=== PATIENT | female | born 1980 | race Caucasian/White ===

== ENCOUNTER 2016-12-09 09:26 | Emergency (ER) | payer OTHER ==
[2016-12-09] MEDS ORDERED: Sodium Chloride 0.9% 1,000 ML IV ONE (10:19)
--- NOTE | 2016-12-09 10:23 | C.PDOC ---
History Of Present Illness 36 y/o female PMHx PE on Xeralto presents to the ED with complains of dizziness and lightheadedness x3 days. Pt denies fever, pain, SOB, cough, headache or any other complaints. Pt states is compliant with medications. Time Seen by Provider: 12/09/16 10:15 Chief Complaint (Nursing): Dizziness/Lightheaded History Per: Patient History/Exam Limitations: no limitations Onset/Duration Of Symptoms: Days Current Symptoms Are (Timing): Still Present Fall Associated With With Symptoms: No Severity: Mild Recent travel outside of the [place]: No - Symptoms Of CVA Recent Head Trauma: No Past Medical History Reviewed: Historical Data, Nursing Documentation, Vital Signs Vital Signs: Last Vital Signs Temp 97.9 F 12/09/16 09:31 Pulse 78 12/09/16 09:31 Resp 16 12/09/16 09:31 BP 121/84 12/09/16 09:31 Pulse Ox 97 12/09/16 10:24 - Medical History PMH: Asthma, Migraine - [facility] Procedures INTRODUCE OTH THROMBOLYTIC IN CENTRAL ART, PERC (02/28/16) ULTRASOUND THERAPY OF OTHER VESSELS, MULTIPLE (02/28/16) Family History: States: Unknown Family Hx - Social History Hx Tobacco Use: No Hx Alcohol Use: No Hx Substance Use: No - Immunization History Hx Tetanus Toxoid Vaccination: No Hx Influenza Vaccination: No Hx Pneumococcal Vaccination: No Review Of Systems Except As Marked, All Systems Reviewed And Found Negative. Constitutional: Negative for: Fever Respiratory: Negative for: Cough, Shortness of Breath Neurological: Positive for: Dizziness. Negative for: Headache Physical Exam - Physical Exam Appears: Non-toxic, No Acute Distress Skin: Warm, Dry, No Rash Head: Atraumatic, Normacephalic Ear(s): Bilateral: Normal Neck: Normal, Normal ROM, Supple Chest: Symmetrical Cardiovascular: Rhythm Regular, No Murmur Respiratory: Normal Breath Sounds, No Rales, No Rhonchi, No Wheezing Gastrointestinal/Abdominal: Soft Extremity: No Pedal Edema Extremity: Bilateral: Atraumatic Neurological/Psych: Oriented x3, Normal Speech, Normal Cognition ED Course And Treatment - Laboratory Results Result Diagrams: 12/09/16 10:52 12/09/16 10:52 O2 Sat by Pulse Oximetry: 97 (on room air) Pulse Ox Interpretation: Normal Medical Decision Making Medical Decision Making: r/o infectious, metabolic vs viral syndrome - labs pending Plan: labs, UA, IV fluids 1133: pt reasesed. texting on phone in nad. states feels well to go home. vitals stable. labs unremarkable. encouraged outpt f/u and return precautions Disposition - Disposition Referrals: [facility] [Outside] [facility] [Outside] Disposition: HOME/ ROUTINE Disposition Time: 11:34 Condition: STABLE Additional Instructions: please follow up with your doctor/clinic return to er with worsening symptoms or concenrs Instructions: Dizziness (ED), Viral Syndrome (ED) - Clinical Impression Clinical Impression: Dizziness - Scribe Statement The provider has reviewed the documentation as recorded by the Haja Mustafa Provider Attestation: All medical record entries made by the Haja were at my direction and personally dictated by me. I have reviewed the chart and agree that the record accurately reflects my personal performance of the history, physical exam, medical decision making, and the department course for this patient. I have also personally directed, reviewed, and agree with the discharge instructions and disposition.
[2016-12-09] MEDS ORDERED: Sodium Chloride 0.9% 1,000 ML ONE (10:39)
[2016-12-09 10:55] LABS: BASO % 0.3 % (0.0-2.0); EOS # 0.1 K/uL (0.0-0.7); EOS % 0.6 % (0.0-4.0); HEMATOCRIT 38.8 % (34.0-47.0); LYMPH # 2.1 K/uL (1.0-4.3); LYMPH % 20.8 % (20.0-40.0); MEAN CELL VOLUME 86.6 fL (81.0-99.0); MEAN CORPUSCULAR HEMOGLOBIN 28.8 pg (27.0-31.0); MEAN CORPUSCULAR HGB CONC 33.3 g/dL (33.0-37.0); MEAN PLATELET VOLUME 8.1 fL (7.2-11.7); MONO # 0.4 K/uL (0.0-0.8); MONO % 4.1 % (0.0-10.0); RED CELL DISTRIBUTION WIDTH 13.3 % (11.5-14.5); WHITE BLOOD COUNT 9.9 K/uL (4.8-10.8)
[2016-12-09 11:04] LABS: CHLORIDE 104 mmol/L (98-107); POTASSIUM 4.7 mmol/L (3.6-5.2); SODIUM 141 mmol/L (132-148)
[2016-12-09 11:06] LABS: BILIRUBIN,TOTAL 0.8 mg/dL (0.2-1.3); GFR AFRICAN-AMERICAN > 60
[2016-12-09 11:07] LABS: ALB/GLOB RATIO 1.1 (1.0-2.1); ALKALINE PHOSPHATASE 64 U/L (38-126); ALT/SGPT 23 U/L (9-52); AST/SGOT 26 U/L (14-36); BLOOD UREA NITROGEN 14 mg/dL (7-17); CARBON DIOXIDE 22 mmol/L (22-30); GLUCOSE,RANDOM 98 mg/dL (65-105); TOTAL PROTEIN 7.7 g/dL (6.3-8.3)
[2016-12-09 11:08] LABS: CALCIUM 8.4 mg/dl (8.6-10.4)
[2016-12-09 11:24] LABS: URINE BILIRUBIN NEGATIVE (NEGATIVE); URINE GLUCOSE (UA) Normal (Normal); URINE KETONE NEGATIVE (NEGATIVE)
[2016-12-09 11:25] LABS: PH,URINE 6.5 (5.0-8.0); URINE BLOOD TRACE-INTACT (NEGATIVE); URINE LEUKOCYTE ESTERASE NEGATIVE Leu/uL (Negative); URINE PROTEIN NEGATIVE (NEGATIVE); URINE UROBILINOGEN 0.2 mg/dL (0.2-1.0)
[2016-12-09 11:26] LABS: RBC URINE 1 /hpf (0-3); URINE COLOR YELLOW (YELLOW)
[2016-12-09 11:27] LABS: WBC URINE 1 /hpf (0-5)
[2016-12-09 11:46] VITALS: BP 117/69; PULSE 65; RESP 18; TEMP 98
[2016-12-09 11:47] VITALS: O2SAT 97
== END 2016-12-09 11:46 | disposition home or self-care (01) ==
LOC: C.ER 09:26
DX: R42 Dizziness and giddiness (principal)

== ENCOUNTER 2017-03-06 18:47 | Emergency (ER) | payer OTHER ==
[2017-03-06 18:55] VITALS: BP 120/88; PULSE 77; RESP 20; TEMP 98.9; O2SAT 99
--- NOTE | 2017-03-06 19:06 | C.PDOC ---
History Of Present Illness 36 yo female come in for evaluation of Right 5th finger pain and mild deformity noted over 5th DIPJ since yesterday. Pt sts, sustained injury 5 days ago " my finger got caught in something and since yesterday noted some deformity". Otherwise, pt denies skin changes, sensory or vascular deficits to Right hand. Ambulate to ED for evaluation, not in any apparent distress. Time Seen by Provider: 03/06/17 18:57 Chief Complaint (Nursing): Finger,Hand,&Wrist History Per: Patient Onset/Duration Of Symptoms: Gradual Past Medical History Reviewed: Historical Data, Nursing Documentation, Vital Signs Vital Signs: Last Vital Signs Temp 98.9 F 03/06/17 18:54 Pulse 77 03/06/17 18:54 Resp 20 03/06/17 18:54 BP 120/88 03/06/17 18:54 Pulse Ox 99 03/06/17 19:07 - Medical History PMH: Asthma, Migraine Surgical History: No Surg Hx - [facility] Procedures INTRODUCE OTH THROMBOLYTIC IN CENTRAL ART, PERC (02/28/16) ULTRASOUND THERAPY OF OTHER VESSELS, MULTIPLE (02/28/16) Family History: States: No Known Family Hx - Social History Hx Tobacco Use: No Hx Alcohol Use: No Hx Substance Use: No - Immunization History Hx Tetanus Toxoid Vaccination: No Hx Influenza Vaccination: No Hx Pneumococcal Vaccination: No Review Of Systems Except As Marked, All Systems Reviewed And Found Negative. Constitutional: Negative for: Fever, Chills Musculoskeletal: Positive for: Hand Pain (Right 5th finger pain) Skin: Negative for: Rash Neurological: Negative for: Weakness, Numbness Physical Exam - Physical Exam Appears: Well, Non-toxic, No Acute Distress Skin: Normal Color, Warm, No Ecchymosis Extremity: Tenderness (mild tenderness over Right 5th DIPJ and distal phalanx with flexion deformity at DIPJ. Unable to extend 5th DIPJ. NO obvious deformity , no skin changes.), Capillary Refill (less than 2sec to Right 5th finger), No Deformity, Other (Remainder of Right hand is intact with FAROM, no neurovascular deficits distally to injury.) Neurological/Psych: Oriented x3, Normal Speech, Normal Motor, Normal Sensation, Normal Reflexes ED Course And Treatment O2 Sat by Pulse Oximetry: 99 - Other Rad Right 5th finger X-Ray: Interpreted by Me, Viewed By Me Interpretation: no acute fx or dislocation Progress Note: ON re-eavl, pt is afebrile, hemdynamicaly stable. NOn-toxic. Right hand: exam c/w rupture of Right 5th DIPJ extensor. NO skin changes. No neurovascular deficits. xray review (-) acute fx. Aluminium finger SPlint applied to Right 5th finger. Pt advise don course of ds. ref. to f/u with hand specialsit in 2-3 days for re-eval. return if any new changes. Disposition Counseled Patient/Family Regarding: Studies Performed, Diagnosis, Need For Followup - Disposition Referrals: Clinic,Med Surg [Primary Care Provider] - Paul Erickson MD [Staff Provider] - Leida Melchor MD [Staff Provider] - Disposition: HOME/ ROUTINE Disposition Time: 19:25 Condition: STABLE Additional Instructions: SPlint Follow up with Hand specialist in 2-3 days for re-evaluation. Return to ED if any worsening or new changes. Instructions: Jammed Finger (ED) - Clinical Impression Clinical Impression: Mallet deformity of left little finger
--- NOTE | 2017-03-07 07:21 | RAD ---
Right hand 5th digit three views History: Injury. Findings: Soft tissue swelling at the level of the right 5th digit. No evidence for acute displaced fracture or dislocation. Negative ulnar variance. Impression: Negative acute. If pain persists, consider MRI.
== END 2017-03-06 19:40 | disposition home or self-care (01) ==
LOC: SUPCPDRO 18:47 → C.ER 18:47
DX: M20.011 Mallet finger of right finger(s) (principal)

== ENCOUNTER 2018-10-20 09:04 | Day surgery (SDC) | payer OTHER ==
[2018-10-20] MEDS ORDERED: Belladonna-Phenobarbital PO STA (11:49)
[2018-10-20] MEDS ORDERED: Pantoprazole 40 mg EC Tab PO STA (11:49)
--- NOTE | 2018-10-20 11:49 | CP.SDSHP ---
Same Day Surgery H & P - History Proposed Procedure: EGD Pre-Op Diagnosis: SEE NOTES - Previous Medical/Surgical History Misc: Other Pain: 4.Moderate Pain - Allergies Allergies: Allergies No Known Allergies Allergy (Verified 10/20/18 10:34) - Physical Exam General Appearance: N Vital Signs: Vital Signs 10/20/18 10:30 Temperature 98.4 F Pulse Rate 63 Respiratory 19 Rate Blood Pressure 121/75 O2 Sat by Pulse 100 Oximetry Mental Status: Alert & Oriented x3 Neuro: WNL Heart: WNL Lungs: WNL GI: Other - {Optional Preform as Required} Breast: WNL Abdomen: Other Rectal: Other Integument: WNL : WNL Ortho: WNL ENT: WNL - Impression Pt. Evaluated Today:Candidate for Anesthesia & Procedure: Yes - Date & Time Time: 11:48 Short Stay Discharge - Short Stay Discharge Admitting Diagnosis/Reason for Visit: DYSPEPSIA Disposition: HOME/ ROUTINE
[2018-10-20] MEDS ORDERED: Lidocaine Hydrochloride 10 ML INJ ONE (11:55)
[2018-10-20] MEDS ORDERED: Lactated Ringer's 500 ML IV ONE ×2 (11:55)
[2018-10-20 12:32] VITALS: RESP 16
[2018-10-20 13:06] VITALS: BP 111/72; PULSE 63; TEMP 98.4; O2SAT 99
== END 2018-10-20 13:20 | disposition home or self-care (01) ==
LOC: C.ENDO 09:04
PROVIDERS: ATTEND Specialist
DX: K30 Functional dyspepsia (principal); R10.13 Epigastric pain; K44.9 Diaphragmatic hernia without obstruction or gangrene; K29.70 Gastritis, unspecified, without bleeding
CPT/HCPCS: 43239; 84703; 88305; 88342; J7120

== ENCOUNTER 2018-10-27 09:03 | Outpatient (CLI) | payer OTHER | END 2018-10-27 09:04 | disposition home or self-care (01) | LOC: C.USIC 09:03 ==

== ENCOUNTER 2018-11-03 07:37 | Outpatient (CLI) | payer OTHER | END 2018-11-03 07:38 | disposition home or self-care (01) | LOC: C.PAT 07:37 | DX: M25.371 Other instability, right ankle (principal) ==

== ENCOUNTER 2018-11-10 05:58 | Day surgery (SDC) | payer OTHER ==
[2018-11-03 07:46] VITALS: BMI 37.4
[2018-11-10 07:14] VITALS: O2SAT 99
[2018-11-10] MEDS ORDERED: Succinylcholine Chloride 20 mg/ml Syr (5 ml) IV ONE (07:44)
[2018-11-10] MEDS ORDERED: Rocuronium 10 mg/ml (5 ml) ONE (07:44)
[2018-11-10] MEDS ORDERED: Midazolam 2 MG/2 ML VIAL ONE (07:45)
[2018-11-10] MEDS ORDERED: Propofol 10 mg/ml Inj (20 ML) ONE (07:46)
[2018-11-10] MEDS ORDERED: ceFAZolin 1 gm in NS 2 GM/200 ML BAG IVPB ONE (07:54)
[2018-11-10] MEDS ORDERED: Ropivacaine 0.5% PF (20 ml) inj INJ ONE (09:20)
[2018-11-10] MEDS ORDERED: Neostigmine 1:1000 (1 mg/ml) Inj ONE (09:20)
--- NOTE | 2018-11-10 09:34 | PCM.SURG1 ---
Surgeon's Initial Post Op Note - Surgeon's Notes Surgeon: Dr. Lee Industrial Refrigeration Mechanic: Dr. Joshua pgy-3, Dr. Duenas PGy-2, Dr. Bhagat pgy-1 Type of Anesthesia: General LMA Anesthesia Administered By: Dr. Samuel Pre-Operative Diagnosis: right ankle chronic instability Operative Findings: see dictation. arthrex push locks, arthrex internal brace. 2-0 vicryl, 4-0 vicryl, 4-0 prolene Post-Operative Diagnosis: same Operation Performed: right ankle ligament repair with internal fixation Specimen/Specimens Removed: soft tissue Estimated Blood Loss: EBL {In ML}: 5 (pulses palpable ) Blood Products Given: N/A Drains Used: No Drains Post-Op Condition: Good Date of Surgery/Procedure: 11/10/18 Time of Surgery/Procedure: 09:34
[2018-11-10] MEDS ORDERED: Oxycodone/Acetaminophen 5/325 mg Tab PO PRN ×2 (09:35)
[2018-11-10] MEDS ORDERED: HYDROmorphone 0.5 mg/0.5 ml ISec ONE (09:38)
[2018-11-10] MEDS ORDERED: HYDROmorphone 0.5 mg/0.5 ml ISec IVP PRN (09:43)
[2018-11-10 11:04] VITALS: RESP 16
[2018-11-10 12:13] VITALS: BP 102/65; PULSE 62; TEMP 97.8
--- NOTE | 2018-11-10 13:26 | PCM.ANESB2 ---
Popliteal Nerve Block - Popliteal Nerve Block Date of Procedure: 11/10/18 Anesthesiologist: isaias Procedure Performed: Popliteal Nerve Block Right - Procedure Popliteal Nerve Block: This procedure was explained to the patient that it is for post-operative pain management. Consent was obtained after a thorough discussion with the patient regarding the benefits and possible complications of local anesthetic block of the sciatic nerve at the popliteal level. The patient was brought to the operating room and standard monitors are applied. Time-out was held with the circulating nurse to confirm the correct surgery and the appropriate block. After applying oxygen by nasal cannula and administering IV Sedation, patient's operative leg was gently raised and supported and the groove in between the biceps femoris and vastus lateralis muscles was carefully palpated. The skin approximately 8cm above the popliteal crease was then marked. The ultrasound transducer was then applied to the posterior thigh approximately 8cm above the popliteal crease in the transverse plane and the sciatic nerve before its division was visualized lateral to the popliteal artery and in between the bicep femoris and semimembranosus/semitendinosus muscles. After identification, the lateral portion of the thigh was prepped with Betadine solution three times and Lidocaine 1% was injected subcutaneously for topical anesthesia. At this point, a # 21 gauge Stimuplex insulated 4 inch needle was inserted into pre-marked area and advanced in a perpendicular direction. The needle was inserted above the ultrasound transducer in-plane towards the sciatic nerve in a [id number] direction. Needle advancement was performed carefully under direct ultrasound visualization. After repeated negative aspiration, __5___cc of ___.5__ % ropivicaine was injected and this was flowed with ___15___ cc of ___.5___% ropiviciane . Under ultrasound guidance the local anesthetics were observed surrounding sciatic nerve . The needle was removed intact and sterile dressing was applied. The patient tolerated the popliteal nerve block well with stable vital signs and was subsequently prepared for the surgery.
--- NOTE | 2018-11-12 04:49 | OP ---
PROCEDURE DATE: 11/10/2018 SURGEON: Jonatan Wood DPM ASSISTANTS: Elisabeth Joshua DPM, PGY-3, Jadya Duenas DPM, PGY-2; Maicol Bhagat MD, PGY-1 [employer]: Michael Harp MD ANESTHESIA: General LMA. PREOPERATIVE DIAGNOSIS: Right lateral ankle instability with rupture of anterior talofibular ligament. POSTOPERATIVE DIAGNOSIS: Right lateral ankle instability with rupture of anterior talofibular ligament. PROCEDURE: Right lateral ankle stabilization with the use of internal fixation. INDICATIONS: The patient is a 38-year-old female with the above-mentioned diagnosis. The patient has exhausted multiple forms of conservative treatment at this time and now seeks surgical intervention. The patient signed the consent after careful explanation of risks, benefits, complications, and alternatives for the surgical procedure. No guarantees were given nor implied. N.p.o. status was confirmed prior to bringing the patient to the operating room. DESCRIPTION OF PROCEDURE: The patient was brought into the operating room and placed on the operating room table in supine position. Time-out was performed for identification of the correct patient and procedure. After induction of general anesthesia, the right foot was then prepped and draped in a normal sterile manner. The patient's right foot was then exsanguinated with elevation. The pneumatic thigh tourniquet was inflated to 350 mmHg and the procedure began. Attention was directed to the lateral aspect of the right ankle where a 5 cm curvilinear incision was made at the distal aspect of the fibula. The incision was deepened through the subcutaneous tissue with care being taken to identify and retract all vital neurovascular structures. All bleeders were cauterized and ligated as necessary. A soft tissue mass was visualized in the subcutaneous tissue of the ankle that was excised and passed off of the operative field and sent to pathology. The superficial peroneal retinaculum was identified and incised using a #15 blade. Periosteal tissue was then resected off of the distal aspect of the fibula and talar body with the renteria elevator. Once the capsular structures were incised, it was noted that the ATFL was completely ruptured at the distal portion where it inserts into the talus with very few fibers intact. At this time, the ankle joint was inverted, and the articular cartilage and lateral gutter was inspected for any osteochondral lesions and none were noted. The ankle joint was completely irrigated. Next, a 3.4 mm drill bit from the Arthrex InternalBrace kit was utilized to create a drill hole into the talar body with care being taken not to violate the talar dome. The drill hole was then passed with a 3.5 mm tap to securely thread into the talus. Afterwards, the 4.75 mm SwiveLock,, which was loaded with FiberTape, was placed into the drill hole. The InternalBrace was then set aside. Next, three drill holes into the distal fibula were drilled with the Arthrex 1.8 mm drill bit and three Arthrex SutureTaks were placed into the distal aspect of the fibula 1 cm apart from each other. The retinaculum was then re-approximated with the FiberWire from each SutureTak and cinched down in a __vest over pants_ technique. Next, two 2.4 mm Arthrex _push locks____ were drilled 2 cm proximal to the distal aspect of the fibula. Next, the Fiberwire suture was then weaved and singed down with PushLock, which was drilled into the fibula while the foot was dorsiflexed and everted. Next, a 2.8 mm drill hole was created 3 cm superior to the distal aspect of the fibula for the InternalBrace. Next, a 3.5 mm SwiveLock tap was then utilized using three turns into the hole. The FiberTape from the InternalBrace coming from the talus was then fed through the islet of the 3.5 mm SwiveLock and the anchor was inserted into the fibular hole with the mallet to assess for proper placement and fed into the fibula while the foot was dorsiflexed and everted. To avoid over-tensioning, a hemostat was placed in between the FiberTape. Excess FiberTape was then cut and removed from the operative field. The ankle was stressed in eversion and inversion and excellent stability was noted. The incision site was then copiously irrigated with sterile normal saline. The retinaculum was then re-approximated with 2-0 Vicryl. Subcutaneous tissue was re-approximated with 4-0 Vicryl and the skin was re-approximated with 4-0 Prolene. Postoperative injection of 10 mL of 0.5% Marcaine plain was given in a local block-type fashion to the right ankle. Postoperative dressing of Xeroform, 4x4 gauze, Eve[place], stockinette, and a posterior splint was applied to the right lower extremity. POSTOPERATIVE CONDITION: The patient tolerated the anesthesia and the procedure well and was escorted to the recovery room with vital signs stable and neurovascular status intact to the right leg. The patient will follow up with Dr. Wood in his office on an outpatient basis. Elisabeth Joshua DPM Jonatan Wood DPM [id number]
== END 2018-11-10 12:30 | disposition home or self-care (01) ==
LOC: C.SDS 05:58
PROVIDERS: ATTEND Podiatrist Foot & Ankle Surgery
DX: M25.371 Other instability, right ankle (principal); S93.491S Sprain of other ligament of right ankle, sequela; D17.23 Benign lipomatous neoplasm of skin and subcutaneous tissue of right leg
CPT/HCPCS: 27870; 88304; 88305; 97116; 97161; C1713; G8978; G8979; G8980; J0690; J1170; J2001; J2250; J2405; J2704; J2710; J2765; J3010; J7120